=== PATIENT | male | born 1965 | race Caucasian/White ===

== ENCOUNTER 2019-04-14 11:25 | Emergency (ER) | payer BC ==
--- NOTE | 2019-04-14 14:02 | Emergency Department Record ---
History of Present Illness - General Chief complaint: Extremity Problem Stated complaint: R INDEX FINGER LAC Time Seen by Provider: 04/14/19 13:13 Mode of Arrival: Ambulatory - History of Present Illness Initial comments: patient not in the room at 1:45 pm today and office manager receptionist said they left Onset/Timin -: Minutes(s) Location: Right, Hand Severity scale (1-10): 3 Quality: Aching Consistency: Constant Improves with: Nothing - Related Data Home Medications Medication Instructions Recorded Confirmed Last Taken No Home Med [NO HOME MEDS] 04/14/19 04/14/19 Unknown Allergies Allergy/AdvReac Type Severity Reaction Status Date / Time oxycodone AdvReac ITCHING Verified 04/14/19 11:44 Travel Screening - Travel/Exposure Within Last 30 Days Have you traveled within the last 30 days?: No - Travel/Exposure Within Last Year Have you traveled outside the [place] in the last year?: No - Additonal Travel Details Have you been exposed to anyone with a communicable illness?: No - Travel Symptoms Symptom Screening: None Past Medical History - SOCIAL HISTORY Smoking Status: Never smoker Alcohol Use: None Drug Use: None - RESPIRATORY Hx Respiratory Disorders: No - CARDIOVASCULAR Hx Cardio Disorders: No - NEURO Hx Neuro Disorders: No - GI Hx GI Disorders: No - Hx Genitourinary Disorders: No - ENDOCRINE Hx Endocrine Disorders: No - MUSCULOSKELETAL Hx Musculoskeletal Disorders: No - PSYCH Hx Psych Problems: No - HEMATOLOGY/ONCOLOGY Hx Hematology/Oncology Disorders: No Family Medical History Any Significant Family History?: Yes Course Vital Signs 04/14/19 11:35 Temperature 98.7 F Pulse Rate 76 Respiratory 20 Rate Blood Pressure 150/73 Pulse Ox 98 Disposition Clinical Impression: Patient left without being seen Forms: Patient Portal Access Time of Disposition: 14:03 Quality - Quality Measures Quality Measures: N/A - Blood Pressure Screening Does Patient Have Any of the Following: No Blood Pressure Classification: Hypertensive Reading Systolic Measurement: 150 Diastolic Measurement: 73 Screening for High Blood Pressure: < Pre-Hypertensive BP, F/U Documented > [ [id number]] Pre-Hypertensive Follow-up Interventions: Referral to alternative/primary care provider.
== END 2019-04-14 14:18 | disposition left against medical advice (07) ==
LOC: ER 11:25
DX: Z53.21 Procedure and treatment not carried out due to patient leaving prior to being seen by health care provider (principal); S61.210A Laceration without foreign body of right index finger without damage to nail, initial encounter
CPT/HCPCS: 99281